=== PATIENT | female | born 2000 | race African-American/Black ===

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

== ENCOUNTER 2023-05-04 01:05 | Emergency (ER) | payer BC ==
[~2023-05-04] VITALS: Ht 172.7 cm; Wt 91.8 kg
[~2023-05-04 01:05] MED LIST: AMOXICILLIN 8751 TAB PO
[2023-05-04 01:24] VITALS: BP 127/86; TEMP 97.3
[2023-05-04 02:01] LABS: COLLECTION METHOD CLEAN CATCH
[2023-05-04 02:07] LABS: URINE APPEARANCE Clear (CLEAR/HAZY); URINE BLOOD Negative (NEGATIVE); URINE COLOR Yellow (YELLOW); URINE GLUCOSE Negative (NEGATIVE); URINE KETONE Negative (NEGATIVE); URINE NITRATE Negative (NEGATIVE); URINE PROTEIN(semi-quant) Negative (NEGATIVE); URINE UROBILINOGEN 0.2 E.U/dL (0.2-1.0)
[2023-05-04 02:14] LABS: MUCOUS Present (NOT PRESENT); URINE BACTERIA Rare /hpf (NONE SEEN); URINE RBC 0-2 /hpf (0-2)
[2023-05-04] MEDS ORDERED: FLEXERIL 1010 MG/TAB PO (02:53)
[2023-05-04 03:00] VITALS: PULSE 81
== END 2023-05-04 03:02 | disposition home or self-care (01) ==
LOC: COL.ER 01:05
PROVIDERS: Nurse Practitioner
DX: M54.50 Low back pain, unspecified (principal)
CPT/HCPCS: J1885; J2360